=== PATIENT | male | born 1975 | race Caucasian/White ===

== ENCOUNTER 2020-08-27 11:55 | Emergency (ER) | payer OTHER | END 2020-08-27 12:55 | disposition home or self-care (01) | LOC: BURERS 11:55 | DX: S61.213A Laceration without foreign body of left middle finger without damage to nail, initial encounter (principal); W26.0XXA Contact with knife, initial encounter; K21.9 Gastro-esophageal reflux disease without esophagitis | CPT/HCPCS: 12001 ==